=== PATIENT | male | born 1995 | race Caucasian/White ===

== ENCOUNTER 2016-11-25 10:36 | Emergency (ER) | payer OTHER ==
[~2016-11-25] VITALS: Ht 190.5 cm; Wt 78.0 kg
[2016-11-25] MEDS ORDERED: CEFTRIAXONE 250 MG ONE ×2 (11:51→12:09)
[2016-11-25] MEDS ORDERED: CEFTRIAXONE 1,000 MG IM ONE (12:00)
[2016-11-25 12:15] VITALS: BP 119/68
== END 2016-11-25 12:21 | disposition home or self-care (01) ==
LOC: ED 11:52
DX: N45.1 Epididymitis (principal)
CPT/HCPCS: 76870; 81001; 87086; 87491; 87591; 96372; 99285; J0696

== ENCOUNTER 2017-03-18 12:29 | Emergency (ER) | payer SELFPAY ==
[~2017-03-18] VITALS: Ht 190.5 cm; Wt 79.3 kg
[2017-03-18 13:03] VITALS: BP 116/73
== END 2017-03-18 14:06 | disposition left against medical advice (07) ==
LOC: ED 14:00
DX: Z53.21 Procedure and treatment not carried out due to patient leaving prior to being seen by health care provider (principal)

== ENCOUNTER 2017-09-29 13:57 | Emergency (ER) | payer SELFPAY ==
[~2017-09-29] VITALS: Ht 193 cm; Wt 81.6 kg
[2017-09-29 13:59] VITALS: BP 130/66
[2017-09-29] MEDS ORDERED: IBUPROFEN 200 MG TABLET PO ONE (15:30)
[2017-09-29] MEDS ORDERED: IBUPROFEN 200 MG TABLET ONE (15:49)
== END 2017-09-29 16:08 | disposition home or self-care (01) ==
LOC: ED 16:00
DX: M25.512 Pain in left shoulder (principal)
CPT/HCPCS: 99284

== ENCOUNTER 2019-02-23 12:56 | Emergency (ER) | payer MEDICAID ==
[~2019-02-23] VITALS: Ht 193 cm; Wt 87.0 kg
[2019-02-23 13:05] VITALS: BP 115/70
[2019-02-23] MEDS ORDERED: CEFTRIAXONE 250 MG IM ONE (13:30)
[2019-02-23] MEDS ORDERED: AZITHROMYCIN 500 MG TABLET PO ONE (13:30)
[2019-02-23] MEDS ORDERED: LIDOCAINE-MPF 1%, 2ML ONE (13:44)
[2019-02-23] MEDS ORDERED: AZITHROMYCIN 500 MG TABLET ONE (13:44)
[2019-02-23] MEDS ORDERED: CEFTRIAXONE 250 MG ONE (13:44)
[2019-02-23 14:01] LABS: CULTURE INDICATED? YES; MICROSCOPIC INDICATED
--- NOTE | 2019-02-23 14:30 | NUR ---
pt given dc instructions. pt a&o, resps even and unlabored, nadn. pt amb to dc desk with steady gait, nadn.
== END 2019-02-23 14:31 | disposition home or self-care (01) ==
LOC: ED 14:25
DX: R30.0 Dysuria (principal); Z20.2 Contact with and (suspected) exposure to infections with a predominantly sexual mode of transmission; F17.200 Nicotine dependence, unspecified, uncomplicated; R31.9 Hematuria, unspecified
CPT/HCPCS: 81001; 87086; 87491; 87591; 96372; 99283; J0696

== ENCOUNTER 2019-04-04 08:56 | Emergency (ER) | payer MEDICAID ==
[~2019-04-04] VITALS: Ht 190.5 cm; Wt 84.5 kg
[2019-04-04 08:59] VITALS: BP 135/86
--- NOTE | 2019-04-04 09:13 | NUR ---
PT PRESENTS TO ED WITH C/O COUGH, CONGESTION, AND "COLD SWEATS" X 3 DAYS. PT A&O, RESPS EVEN AND UNLABORED. PT SKIN PINK, WARM AND DRY AT THIS TIME. EKG DONE IN TRIAGE, REVIEWED BY PROVIDER. PT AMB TO RADIOLOGY WITH TECH AT THIS TIME, GAIT STEADY.
[2019-04-04 09:41] LABS: RAPID INFLUENZA A Negative (Negative); RAPID INFLUENZA B Negative (Negative)
== END 2019-04-04 10:01 | disposition home or self-care (01) ==
LOC: ED 09:27
DX: J06.9 Acute upper respiratory infection, unspecified (principal); M79.10 Myalgia, unspecified site; F17.210 Nicotine dependence, cigarettes, uncomplicated
CPT/HCPCS: 71046; 87400; 93005; 99284

== ENCOUNTER 2019-05-22 11:26 | Emergency (ER) | payer MEDICAID ==
[~2019-05-22] VITALS: Ht 193 cm; Wt 83.1 kg
[2019-05-22 11:31] VITALS: BP 121/74
--- NOTE | 2019-05-22 11:44 | NUR ---
PT HERE WITH C/O RIGHT SHOULDER PAIN. PT STATES HE SLIPPED ON ICE YESTERDAY AND FELL DIRECTLY ON RIGHT SHOULDER, DENIES HEAD TRAUMA OR LOC. PT STATES PREVIOUS SHOULDER INJURIES.
--- NOTE | 2019-05-22 12:55 | NUR ---
Patient/Caregiver given discharge instructions and they have confirmed that they understand the instructions. Patient ambulatory with steady gait.
== END 2019-05-22 12:57 | disposition home or self-care (01) ==
LOC: ED 12:22
DX: S43.421A Sprain of right rotator cuff capsule, initial encounter (principal); W00.0XXA Fall on same level due to ice and snow, initial encounter; Y92.830 Public park as the place of occurrence of the external cause; Y93.89 Activity, other specified; Y99.8 Other external cause status
CPT/HCPCS: 99283

== ENCOUNTER 2020-05-16 10:42 | Emergency (ER) | payer SELFPAY ==
[~2020-05-16] VITALS: Ht 193 cm; Wt 97.4 kg
[2020-05-16 12:23] VITALS: BP 127/70
--- NOTE | 2020-05-16 12:38 | NUR ---
Patient given discharge instructions and Rx, they have confirmed that they understand the instructions. Patient ambulatory with steady gait.
== END 2020-05-16 12:41 | disposition home or self-care (01) ==
LOC: ED 12:34
DX: S63.512A Sprain of carpal joint of left wrist, initial encounter (principal); S50.02XA Contusion of left elbow, initial encounter; F17.210 Nicotine dependence, cigarettes, uncomplicated; W01.0XXA Fall on same level from slipping, tripping and stumbling without subsequent striking against object, initial encounter; Y93.89 Activity, other specified; Y92.410 Unspecified street and highway as the place of occurrence of the external cause; Y99.8 Other external cause status
CPT/HCPCS: 29125; 99284; 99406